=== PATIENT | female | born 1995 | race African-American/Black ===

== ENCOUNTER 2025-07-12 11:09 | Emergency (ER) | payer MEDICAID ==
[~2025-07-12] VITALS: Ht 180.3 cm; Wt 105.0 kg
[2025-07-12 11:13] VITALS: O2SAT 99
[2025-07-12 11:16] VITALS: BP 125/74; PULSE 99; RESP 18; TEMP 37.1; O2SAT 99
== END 2025-07-12 12:39 | disposition left against medical advice (07) ==
LOC: ER 11:17
DX: M79.641 Pain in right hand (principal); Z53.21 Procedure and treatment not carried out due to patient leaving prior to being seen by health care provider